=== PATIENT | male | born 1955 | race African-American/Black ===

== ENCOUNTER → 2017-04-12 | Outpatient (CLI) | payer OTHER, MEDICAID ==
--- NOTE | 2017-04-12 11:35 | MRI ---
HISTORY: Low back pain, radiculopathy Study: MRI lumbar spine without contrast Comparison: None Technique: Multiplanar multi-sequence MRI of the lumbar spine was obtained. Sagittal T1, sagittal T 2, and stir weighted images, axial T1, and axial T2 images were obtained. Findings: There is slight retrolisthesis L4 on L5. The lumbar spine demonstrates otherwise normal alignment wi th the expected signal characteristics of the bone marrow. The conus of the cord terminates normall y. T12 -- L1: No evidence for compressive disc disease. The neural foramina are patent. The joints are normal. L1 -- L2: No evidence for compressive disc disease. The neural foramina are patent. The joints are n ormal. Incidental note is made of a small annular rent. L2 -- L3: Mild concentric disc bulging contributes along with facet arthropathy to mild lateral rece ss narrowing left worse than right. L3 -- L4: Broad-based disk bulging effaces the thecal sac and contributes to moderate lateral recess narrowing bilaterally right greater than left. L4 -- L5: There is slight retrolisthesis L4 on L5. There is also a compressive central disc protrusi on which effaces the thecal sac and abuts but does not displace the right L5 nerve root. Broad-based disc bulge does contribute to lateral recess and foraminal narrowing bilaterally. The joints are no rmal. L5 -- S1: Mild concentric disc bulging is present. There is a focal noncompressive central disc prot rusion present. The broad-based bulging contributes along with some spondylitic change to lateral re cess and foraminal narrowing bilaterally. The joints are normal. IMPRESSION: As above Reported By:
== END ==
LOC: RAD 07:54
PROVIDERS: ATTEND Specialist
DX: M46.89 Other specified inflammatory spondylopathies, multiple sites in spine (principal)
CPT/HCPCS: 72148